=== PATIENT | female | born 2005 | race Caucasian/White ===

== ENCOUNTER 2023-03-11 02:43 | Outpatient (CLI) | payer OTHER, SELFPAY ==
[2023-03-11] MEDS: Levalbuterol HFA 15 GM INH 4 PUFF IH (09:00)
[2023-03-11] MEDS: Inhaler, Assist Device 1 EACH MC (09:01)
--- NOTE | 2023-03-11 12:51 | W.PFT ---
Date of service: 03/11/23 Time of Service: 07:55 Pulmonary Function Test Result Indications: Dyspnea Interpretation Spirometry: No airflow limitation. No significant bronchodilator response. Lung Volumes: Normal lung volumes Diffusion Capacity: Normal diffusion Airway Pressure: Normal airways resistance Impression Normal pulmonary function testing Clinical Correlation therefore is recommended.
== END 2023-03-11 02:44 | disposition home or self-care (01) ==
PROVIDERS: PCP Pediatrics; Visit Provider Nurse Practitioner Family
DX: R06.00 Dyspnea, unspecified (principal)
CPT/HCPCS: 94060; 94726; 94729

== ENCOUNTER → 2023-03-30 13:27 | Outpatient (CLI) | payer OTHER, SELFPAY ==
--- NOTE | 2023-03-30 09:24 | DI.US_ITS ---
APPROVED REPORT EXAM: Comprehensive 2D, Doppler, and color-flow Echocardiogram Patient Location: Out-Patient [facility] Operator: Sarah Saini RDCS (AE) Indications: h/o SOB, at rest and with exertion Other Information Study Quality: Good Conclusion Normal left ventricular wall thickness and chamber size. Ejection fraction is 58%. Wall motion is n ormal Normal right ventricular size and systolic function Both atria are normal in size There is no structural or hemodynamically significant valvular disease Estimated right ventricular systolic pressure is 18 mmHg Wall motion Left Ventricle The left ventricle is normal size. The left ventricular systolic function is normal. The left ventric ular ejection fraction is within the normal range. There is normal left ventricular wall thickness. T here is normal LV segmental wall motion. There is no ventricular septal defect visualized. LVEF is 58 %. Right Ventricle The right ventricle is normal size. The right ventricular systolic function is normal. Atria The left atrium size is normal. The right atrium size is normal. The interatrial septum is intact wit h no evidence for an atrial septal defect. Aortic Valve The aortic valve is normal in structure. Aortic valve is trileaflet. There is no aortic valvular sten osis. No aortic regurgitation is present. Mitral Valve The mitral valve is normal in structure. No evidence of mitral valve stenosis. Trace mitral regurgita tion. Tricuspid Valve The tricuspid valve is normal in structure. There is no tricuspid valve stenosis. Trace tricuspid reg urgitation. The RVSP is 18.1mmHg. Pulmonic Valve The pulmonary valve is normal in structure. There is no pulmonic valvular stenosis. Trace pulmonic re gurgitation. Great Vessels The aortic root is normal in size. The ascending aorta is normal in size. Aortic arch is normal in ca liber. IVC is normal in size and collapses >50% with inspiration. Pericardium There is no pericardial effusion. 2D Dimensions IVSD d PLAX 0.65 cm F: 0.6-1.0 Ao Root d 2.97 cm F: 2.7 - 3.3 LVPW d PLAX 0.67 cm F: 0.6 - 1.0 Ao Asc Diam d 2.59 cm F: 2.3 - 3.1 LVID d PLAX 4.50 cm F: 3.8 - 5.2 LVDs 3.19 cm F: 2.2 - 3.5 LV EF Teichholz 56.2 % FS 29.23 % LV EDV (Teich) 92.5 mL LV ESV (Teich) 40.5 mL M-Mode TAPSE 1.81 cm (M/F) >1.7 Auto EF LV EDV A4C 97.3 mL LV EDV A2C 106.4 mL LV EDV BP 103.9 mL LV ESV A4C 46.9 mL LV ESV A2C 52.0 mL LV ESV BP 49.9 mL LVEF(%) A4C 51.7 % LVEF(%) A2C 51.2 % LVEF(%) BP 51.9 % LV SV A4C 50.3 ml LV SV A2C 54.5 ml LV SV BP 54.0 ml LV CO A4C 3.0 L/min LV CO A2C 3.5 L/min LV CO BP 3.3 L/min HR A4C 60.00 BPM HR A2C 64.06 BPM LV EDV Index (BP) LV Strain Long Pk Overal Avg (s) 17.46 RV Strain Global Peak Long. Strain A4C 18.00 Global Peak Long. Strain A4C FW 20.08 LA Volume LA Length A4C 4.1 cm LA Length A2C 4.1 cm LA Area A4C s 13.12 cm2 LA Area A2C s 14.35 cm2 LA Vol A4C A-L 35.52 mL LA Vol A2C A-L 42.57 mL LA Vol Biplane A-L 38.9 mL LA Vol/BSA A4C A-L LA Vol/BSA A2C A-L LA Vol/BSA BP A-L 21.6 mL/m2 LA Vol A4C MOD 32.2 mL LA Vol A2C MOD 39.7 mL LA Vol BP MOD 35.6 mL RA Volume RA Area A4C 10.1 cm2 RA ESV A4C (A-L) 21.3mL RA Vol/BSA A4C A-L RA Length A4C 4.0 cm RA ESV A4C (MOD) 20.2mL LV Diastology MV E' medial 0.113 (>0.07 m/s) MV E Vmax 0.76 (0.4-1.3 m/s) MV E/E' MED 6.75 (<14) MV A Vmax 0.65 (0.4-1.3 m/s) MV E' lateral 0.227 (>0.1 m/s) E/A Ratio 1.2 MV E/E' LAT 3.38 (<14) MV E' Average 0.170 m/s MV E/E'(average) 4.50 Aortic Valve AoV Vmax 1.19 m/s LVOT Vmax 0.92 m/s AoV Peak Grad 5.7 mmHg LVOT Peak Grad 3.4 mmHg AoV Area (Vmax) 2.43 cm2 LVOT VTI 0.187 m AoV VTI 0.255 m LVOT Mean Grad 1.9 mmHg AoV Mean Artemio. 0.88 m/s LVOT SV 58.64 mL AoV Mean Grad 3.5 mmHg LVOT Diam s 1.95 cm AoV Area (VTI) 2.30 cm2 Velocity Ratio 0.77 Mitral Valve MV DT 88 (160-240 msec) MV Vmax TIPS 0.77 m/s MV Mean Grad 0.7 (<2mmHg) MV VTI 0.244 m Pulmonary Valve PV Vmax 0.87 (0.5-1.5 m/s) RVOT Vmax 0.89 m/s PV Peak Grad 3.0 mmHg RVOT Peak Gr. 3.1 mmHg PV Mean Artemio 0.63 m/s RVOT VTI 0.190 m PV Mean Grad 1.8 mmHg RVOT Mean Gr. 1.7 mmHg Tricuspid Valve RA Pressure 3.00 mmHg TR Vmax 1.94 m/s TV S' 0.11 m/s TR Peak Grad 15.0 mmHg RVSP (TR) 18.1 mmHg
== END ==
PROVIDERS: PCP Pediatrics; Visit Provider Nurse Practitioner Family
DX: R06.02 Shortness of breath (principal)
CPT/HCPCS: 93306